=== PATIENT | female | born 1945 | race Caucasian/White ===

== ENCOUNTER → 2020-08-30 | Outpatient (CLI) | payer MEDICARE, BC ==
--- NOTE | 2020-09-01 16:06 | PATH ---
[address] [address] PATHOLOGY RPT PROCEDURE Name: LYNDA ABREU Room: [facility] Mara#: [id number] Admission: 08/30/20 Date of : 41 Discharge: Report #: [id number] Path Case #: [id number] [facility] Accession Number: [id number] . 01 Material submitted: . breast - LEFT BREAST TISSUE WITH CALCIFICATIONS. Modifiers: left . 01 Clinical history: . LEFT STEREOTACTIC BREAST BIOPSY FOR LEFT BREAST CALCIFICATIONS . 02 Diagnosis: Left breast tissue with calcifications, stereotactic biopsy: - Benign breast with florid usual ductal epithelial hyperplasia, several small fibroadenomas with stromal fibrosis and coarse calcifications, duct ectasia and abundant coarse luminal calcifications and extensive medial calcification of blood vessels, negative for atypia. See comment. (DUNG:deep 09/01/2020) QTP 09/01/2020 1238 Local . 02 Comment: Reviewed with Dr. Akshat Sheppard who agrees with the diagnosis. (DUNG:[facility] 09/01/2020) . 02 Electronically signed: . Mark Baker MD, Pathologist NPI- [id number] . 01 Gross description: . The specimen is received in formalin, labeled "Lynda Abreu, left breast calcifications" and consists of a blue cassette containing multiple needle cores of yellow fibroadipose tissue measuring 2.5 x 2.5 x 0.6 cm which are transferred to cassette A1. Also received are 2 needle cores of yellow orange fibroadipose tissue measuring 0.8 cm and 3.0 cm in length and 0.4-0.5 cm in diameter which are entirely submitted in A2. The specimen was collected at 2:45 PM on 08/30/2020 and placed in formalin at 2:50 PM. The cold ischemic time is 5 minutes and the total formalin fixation time is greater than 6 hours less than 72 hours. (SDY; 08/31/2020) SYU/SYU 08/31/2020 1022 Local . 02 Pathologist provided ICD-10: N62, D24.2, N60.32, N60.42 . 02 CPT . 595636 Specimen Comment: A courtesy copy of this report has been sent to [phone], [phone] Specimen Comment: [id number], [place] [address] PATHOLOGY RPT PROCEDURE Name: LYNDA ABREU Room: [facility]#: [id number] Admission: 08/30/20 Date of : 41 Discharge: Report #: [id number] Path Case #: [id number] Specimen Comment: Report sent to ,DR GIFFORD / DR ROBERTS Performed at: 01 [facility] [address] [place] [address] [address], [place], [place] [id number] MD Andreas Maria MD Phone: [phone] Performed at: [address] [facility] [address] [place]DRA Smith [id number] MD Mark Baker MD Phone: [phone]
== END | disposition home or self-care (01) ==
LOC: M.RAD 13:30
PROVIDERS: ATTEND Surgery
DX: R92.1 Mammographic calcification found on diagnostic imaging of breast (principal); D24.2 Benign neoplasm of left breast; N62 Hypertrophy of breast; N60.32 Fibrosclerosis of left breast; N60.42 Mammary duct ectasia of left breast